=== PATIENT | female | born 1965 | race Caucasian/White ===

== ENCOUNTER 2016-10-04 18:44 | Emergency (ER) | payer MEDICAID, MEDICARE ==
[~2016-10-04] VITALS: Ht 157.5 cm; Wt 109.0 kg
[~2016-10-04 18:44] MED LIST: ACET-2178 PO; ASPI-229 PO; LEVO125T8 PO; LORA1TAB PO; LOSA50TA20 PO; METF10002 PO; NAPR-681 PO; RANI150T7 PO; TOPI25TA7 PO; TRAM50TA3 PO; TRAZ-132 PO; VENL150C52 PO
[2016-10-04] MEDS ORDERED: CLIN150C14 PO (19:11)
[2016-10-04] MEDS ORDERED: AMOX125S8 PO (19:11)
[2016-10-04] MEDS ORDERED: MORPHINE SULFATE 4 MG/ML CPJ (NOT FOR IM USE) IV ONE (22:15)
[2016-10-04] MEDS ORDERED: ONDANSETRON HCL 4MG/2ML VIAL IV ONE (22:15)
[2016-10-04] MEDS ORDERED: SODIUM CHLORIDE 0.9% 1,000 ML IV ONE (22:15)
[2016-10-04 22:35] LABS: BASOPHILS % 1.2 % (0.0-2.0); EOSINOPHILS % 0.9 % (0.0-5.0); HEMATOCRIT. 37.6 % (36.0-48.0); HEMOGLOBIN. 12.4 g/dL (12.0-16.0); LYMPHOCYTES % 22.5 % (20.0-50.0); MEAN CORPUSCULAR HEMOGLOBIN 26.8 pg (28.0-32.0); MEAN PLATELET VOLUME 9.1 fl (7.4-10.4); MONOCYTES % 10.7 % (2.0-8.0); NEUTROPHILS % 64.7 % (40.0-76.0); PLATELET 184 x1000/uL (130-400); RED BLOOD CELL COUNT 4.65 mill/uL (4.2-5.4)
[2016-10-04 22:48] LABS: CARBON DIOXIDE 33 mEq/L (21-32); CHLORIDE 97 mEq/L (98-107)
[2016-10-05] MEDS ORDERED: MORPHINE SULFATE 2 MG/ML CPJ (NOT FOR IM USE) IV ONE ×2 (00:30→02:30)
[2016-10-05] MEDS ORDERED: CEFTRIAXONE SODIUM 1 G/VIAL IM ONE (00:30)
[2016-10-05] MEDS ORDERED: CEFTRIAXONE 1 G PREMIX 50 ML IV ONE (00:45)
[2016-10-05] MEDS ORDERED: MORPHINE SULFATE 4 MG/ML CPJ (NOT FOR IM USE) IV ONE (03:30)
[2016-10-05 07:30] VITALS: BP 133/75
== END 2016-10-05 07:40 | disposition home or self-care (01) ==
LOC: ER 22:04
DX: R22.0 Localized swelling, mass and lump, head (principal); E11.9 Type 2 diabetes mellitus without complications; I10 Essential (primary) hypertension; E03.9 Hypothyroidism, unspecified; M19.90 Unspecified osteoarthritis, unspecified site; Z79.82 Long term (current) use of aspirin; Z90.710 Acquired absence of both cervix and uterus
CPT/HCPCS: 36415; 70486; 80048; 85025; 96361; 96365; 96375; 96376; 99285; J0696; J2270; J2405; J7030

== ENCOUNTER 2017-10-13 13:31 | Emergency (ER) | payer MEDICAID ==
[~2017-10-13] VITALS: Ht 154.9 cm; Wt 116.0 kg
[~2017-10-13 13:31] MED LIST changes: +AMOX125S8 PO; -ASPI-229 PO; +ASPI81TA47 PO; +CLIN150C14 PO; -METF10002 PO; +METF10004 PO; +TOPA25 PO; -TOPI25TA7 PO
[2017-10-13] MEDS ORDERED: HYDROCODONE/ACETAMINOPHEN 5/325MG TABLET PO ONE (14:30)
[2017-10-13] MEDS ORDERED: KETOROLAC 60MG/2ML VIAL IM ONE (14:30)
[2017-10-13 15:45] VITALS: BP 151/79
== END 2017-10-13 15:47 | disposition home or self-care (01) ==
LOC: ER 13:31
DX: M25.512 Pain in left shoulder (principal); M79.7 Fibromyalgia; E11.9 Type 2 diabetes mellitus without complications; I10 Essential (primary) hypertension; E03.9 Hypothyroidism, unspecified
CPT/HCPCS: 73030; 96372; 99284; J1885

== ENCOUNTER 2017-11-30 09:44 | Emergency (ER) | payer MEDICAID ==
[~2017-11-30] VITALS: Ht 154.9 cm; Wt 115.0 kg
[~2017-11-30 09:44] MED LIST changes: -TRAZ-132 PO; +TRAZ-213 PO
[2017-11-30 11:12] VITALS: BP 133/71
== END 2017-11-30 14:37 | disposition home or self-care (01) ==
LOC: ER 09:44
DX: N76.0 Acute vaginitis (principal)
CPT/HCPCS: 99283

== ENCOUNTER 2018-01-07 14:53 | Emergency (ER) | payer MEDICAID ==
[~2018-01-07] VITALS: Ht 154.9 cm; Wt 116.0 kg
[~2018-01-07 14:53] MED LIST changes: +METF-416 PO; -METF10004 PO
[2018-01-07 15:56] VITALS: BP 137/80
== END 2018-01-07 21:00 | disposition left against medical advice (07) ==
LOC: ER 14:53
DX: Z53.21 Procedure and treatment not carried out due to patient leaving prior to being seen by health care provider (principal)

== ENCOUNTER 2018-06-04 17:54 | Emergency (ER) | payer MEDICAID ==
[~2018-06-04] VITALS: Ht 162.6 cm; Wt 113.0 kg
[2018-06-05] MEDS ORDERED: KETOROLAC 30MG/ML VIAL IV STA (01:36)
[2018-06-05] MEDS ORDERED: ONDANSETRON HCL 4MG/2ML INJ IV STA (01:36)
[2018-06-05] MEDS ORDERED: SODIUM CHLORIDE 0.9% 1,000 ML IV ONE (01:36)
[2018-06-05 02:40] LABS: CHLORIDE 104 mEq/L (98-107)
[2018-06-05 02:52] LABS: BASOPHILS % 0.9 % (0.0-2.0); EOSINOPHILS % 1.2 % (0.0-5.0); HEMATOCRIT. 40.2 % (36.0-48.0); HEMOGLOBIN. 13.1 g/dL (12.0-16.0); LYMPHOCYTES % 28.2 % (20.0-50.0); MEAN CORPUSCULAR HEMOGLOBIN 27.7 pg (28.0-32.0); MEAN CORPUSCULAR VOLUME 85.3 fL (81.0-99.0); MEAN PLATELET VOLUME 8.8 fl (7.4-10.4); MONOCYTES % 13.4 % (2.0-8.0); NEUTROPHILS % 56.3 % (40.0-76.0); PLATELET 232 x1000/uL (130-400); RED BLOOD CELL COUNT 4.71 mill/uL (4.2-5.4); RED CELL DISTRIBUTION WIDTH 15.9 % (11.6-14.6)
[2018-06-05 03:32] LABS: CLARITY URINE CLEAR (CLEAR); COLOR URINE YELLOW (YELLOW); KETONES URINE NEGATIVE (NEGATIVE); LEUKOCYTE ESTERASE URINE NEGATIVE (NEGATIVE); NITRITE URINE NEGATIVE (NEGATIVE); OCCULT BLOOD URINE NEGATIVE (NEGATIVE); PROTEIN URINE 1+ (NEGATIVE); SPECIFIC GRAVITY URINE 1.027 (1.005-1.030)
[2018-06-05 04:47] VITALS: BP 149/79
== END 2018-06-05 04:53 | disposition home or self-care (01) ==
LOC: ER 17:54
DX: J06.9 Acute upper respiratory infection, unspecified (principal); K29.00 Acute gastritis without bleeding; I51.7 Cardiomegaly; E11.9 Type 2 diabetes mellitus without complications; E78.00 Pure hypercholesterolemia, unspecified; I10 Essential (primary) hypertension; M19.90 Unspecified osteoarthritis, unspecified site; R74.0 Nonspecific elevation of levels of transaminase and lactic acid dehydrogenase [LDH]; Z79.84 Long term (current) use of oral hypoglycemic drugs; Z79.82 Long term (current) use of aspirin
CPT/HCPCS: 36415; 71045; 80053; 81003; 82962; 85025; 96361; 96374; 96375; 99284; J1885; J2405; J7030; Z7610